=== PATIENT | male | born 1995 | race Caucasian/White ===

== ENCOUNTER 2017-06-27 22:21 | Emergency (ER) | payer SELFPAY ==
[2017-06-27 22:32] VITALS: BP 146/90; PULSE 87; TEMP 98.2; BMI 34.5
[2017-06-27] MEDS ORDERED: SODIUM CHLORIDE 1,000 ML IV STA (23:21)
--- NOTE | 2017-06-27 23:33 | PDOC ---
History of Present Illness - General Chief Complaint: Palpitations Stated Complaint: SHAKING Time Seen by Provider: 06/27/17 22:48 - History of Present Illness Initial Comments: 06/27/17 23:21 21 yo M with no significant pmh who presents with palpations. Patient reports onset of palpitations this AM following cocaine and marijuana use the previous night (06/26). Endorsed multiple amounts of cocaine, marijuanna, and alcohol yesterday evening. This AM reports episodes of non biliary non bloody emesis, tremors, palpitations, left leg numbness/tingling, and diaphoresis. Denies chest pain, SOB, lightheadedness, MANCIA, weakness, abdominal pain, diarrhea. Family member at bedside reports they have attempted high PO fluid intake to "flush drugs out of system." Past History - Past Medical History Allergies/Adverse Reactions: Allergies Allergy/AdvReac Type Severity Reaction Status Date / Time No Known Allergies Allergy Verified 06/27/17 22:32 Home Medications: Ambulatory Orders NK [No Known Home Medication] 06/27/17 - Suicide/Smoking/Psychosocial Hx Smoking History: Current every day smoker Information on smoking cessation initiated: No Review of Systems - Review of Systems Comments:: 06/27/17 23:34 GENERAL/CONSTITUTIONAL: No fever or chills. No weakness. HEAD, EYES, EARS, NOSE AND THROAT: No change in vision. No ear pain or discharge. No sore throat.- CARDIOVASCULAR: + Palpitations. No chest pain or shortness of breath RESPIRATORY: No cough, SOB, wheezing, or hemoptysis. GASTROINTESTINAL: No nausea, vomiting, diarrhea or constipation. GENITOURINARY: No dysuria, frequency, or change in urination. MUSCULOSKELETAL: No joint or muscle swelling or pain. No neck or back pain. SKIN: No rash NEUROLOGIC:+ Change in strength/sensation. No headache, vertigo, loss of consciousness. ENDOCRINE: No increased thirst. No abnormal weight change HEMATOLOGIC/LYMPHATIC: No anemia, easy bleeding, or history of blood clots. ALLERGIC/IMMUNOLOGIC: No hives or skin allergy. *Physical Exam - Vital Signs Last Vital Signs Temp Pulse Resp BP Pulse Ox 98.2 F 87 16 146/90 100 06/27/17 22:31 06/27/17 22:31 06/27/17 22:31 06/27/17 22:31 06/27/17 22:31 - Physical Exam Comments: 06/27/17 23:37 GENERAL: + Tremulous. Awake, alert, and fully oriented, in no acute distress HEAD: No signs of trauma, normocephalic, atraumatic EYES:Pupils mydriatic 5-6 mm . PERRLA, EOMI, sclera anicteric, conjunctiva clear ENT: hearing grossly normal, nares patent, oropharynx clear without exudates. Moist mucosa NECK: Normal ROM, no JVD, or masses LUNGS: No distress, speaks full sentences, clear to auscultation bilaterally HEART: Regular rate and rhythm, normal S1 and S2, no murmurs, rubs or gallops, peripheral pulses normal and equal bilaterally. ABDOMEN: Soft, nontender, normoactive bowel sounds. No guarding, no rebound. No masses EXTREMITIES : Normal inspection, Normal range of motion, no edema. No clubbing or cyanosis. NEUROLOGICAL: Cranial nerves II through XII grossly intact. Normal speech, normal gait, no focal sensorimotor deficits SKIN: Warm, Dry, normal turgor, no rashes or lesions noted. Heart Score/ECG Review - History History: Slightly suspicious - Electrocardiogram EKG: Normal - Age Age: </= 45 - Risk Factors Based on the list above the patient has:: No risk factors known - ECG Intrepretation Rhythm: Regular Rhythm - [place]: Right [place] Deviation - ST and T Early Repolarization: No Non Specific ST-T Wave changes: No - ECG Impressions Normal ECG: Yes Non-specific ST Elevation: No Ischemic Changes: No ED Treatment Course - LABORATORY CBC & Chemistry Diagram: 06/27/17 23:45 06/27/17 23:45 Medical Decision Making - Medical Decision Making 06/27/17 23:41 21 yo M with no significant pmh who presents with palpations. Patient reports onset of palpitations this AM following cocaine and marijuana use the previous night (06/26). Endorsed multiple amounts of cocaine, marijuanna, and alcohol yesterday evening. This AM reports episodes of non biliary non bloody emesis, tremors, palpitations, left leg numbness/tingling, and diaphoresis. Denies chest pain, SOB, lightheadedness, MANCIA, weakness, abdominal pain, diarrhea. Physical exam with mydriasis and tremors, cardiopulm unremarkable. BP 146/90. ED Course: 06/28/17 00:05 EKG: NSR, with mild RAD and absent GABRIELA, or STD. 06/28/17 00:35 CBC, CMP: Unremarkable 06/28/17 01:15 Positive PCP, THC Patient stable at bedside and ready for D/c with return precautions. *DC/Admit/Observation/Transfer Diagnosis at time of Disposition: Cocaine abuse - Discharge Dispostion Disposition: HOME Condition at time of disposition: Stable Admit: No - Referrals - Patient Instructions Printed Discharge Instructions: DI for Cocaine Use Disorder Additional Instructions: Please return to the emergency department with any new or worsening symptoms or concerns. - Post Discharge Activity - Attestations Physician Attestion: 06/28/17 01:16 I attest to the information provided in this note
[2017-06-27 23:59] LABS: BASOPHIL 0.9 % (0-2.0); EOSINOPHIL 1.5 % (0-4.5); MCH 31.8 pg (25.7-33.7); MCHC 33.8 g/dl (32.0-35.9); MEAN CELL VOLUME 94.1 fl (80-96); MEAN PLT VOLUME 9.5 fl (7.5-11.1); NEUTROPHILS 69.2 % (42.8-82.8); PLATELET COUNT 231 K/MM3 (134-434); RDW 13.2 % (11.9-15.9); WHITE BLOOD COUNT 13.8 K/mm3 (4.0-10.0)
--- NOTE | 2017-06-28 | PDOC ---
Attending Attestation - Resident Resident Name: Reza Banks - HPI HPI: 06/27/17 23:59 Pt comes with palpitations and chest pain and shakes after polysubstance abuse all night yesterday - Physicial Exam PE: 06/28/17 00:00 Agree with resident exam
[2017-06-28 00:20] LABS: ALBUMIN 4.5 g/dl (3.4-5.0); ALK PHOS 110 U/L (45-117); ANION GAP 8 (8-16); BILIRUBIN,TOTAL 1.5 mg/dL (0.2-1.0); CALCIUM 9.2 mg/dL (8.5-10.1); CO2 27 mmol/L (21-32); CREATININE 1.3 mg/dL (0.7-1.3); GLUCOSE,RANDOM 92 mg/dL (74-106); SGOT/AST 16 U/L (15-37); SGPT/ALT 44 U/L (12-78); TOT PROT 7.8 g/dl (6.4-8.2)
[2017-06-28 01:08] LABS: URINE MARIJUANA THC POSITIVE ng/ml (CUTOFF=50)
--- NOTE | 2017-06-28 09:51 | EKG ---
Test Reason : Blood Pressure : / mmHG Vent. Rate : 064 BPM Atrial Rate : 064 BPM P-R Int : 136 ms QRS Dur : 106 ms QT Int : 386 ms P-R-T Axes : 064 079 041 degrees QTc Int : 398 ms NORMAL SINUS RHYTHM WITH SINUS ARRHYTHMIA NORMAL ECG NO PREVIOUS ECGS AVAILABLE Confirmed by MAGGY TRINIDAD, MARIZOL ([id number]) on 06/28/2017 9:50:37 AM Referred By: Confirmed By:MARIZOL WINTER MD
== END 2017-06-28 01:31 | disposition home or self-care (01) ==
LOC: JER 22:21
PROC: 3E0337Z Introduction of Electrolytic and Water Balance Substance into Peripheral Vein, Percutaneous Approach (ICD-10-PCS; principal; 2017-06-27)
DX: F14.10 Cocaine abuse, uncomplicated (principal); F12.10 Cannabis abuse, uncomplicated; F10.10 Alcohol abuse, uncomplicated
CPT/HCPCS: 36415; 71020-TC; 80053; 80307; 84443; 84484; 85025; 93005; 93010; 99284-25